=== PATIENT | female | born 1985 | race African-American/Black ===

== ENCOUNTER 2017-06-08 18:43 | Emergency (ER) | payer OTHER ==
--- NOTE | ~2017-06-08 | CT98 ---
[facility] A Service [facility] RADIOLOGY TEXT RESULTS PATIENT: GINI VILLATORO LOCATION: SED : 89 UNIT #: [id number] AGE: [address]: HASMUKH RED SEX: F ORDER DR: [id number] [address] [address] [id number] E MR#: [id number] Acc #: [id number] NAME: GINI VILLATORO : 1985 SEX: F STUDY DATE/TIME: 06/08/2017 20:29 UNIT: SED ROOM: STUDY DESCRIPTION: CT Lumbar Spine Wo Cont Attending Physician: Hasmukh Red Ordering Physician: Hasmukh Red Primary Care Physician: Primary Care Physician No MEDICAL IMAGING REPORT This report is preliminary unless electronic signature is present. EXAM Lumbar spine CT without contrast. HISTORY Bilateral lower leg pain, tingling and swelling. Onset this morning early a.m. No know injury. COMMENT Lumbar spine CT performed in the axial plane followed by sagittal an coronal reconstructed images. No previous. The CT exam was performed with one or more of the following radiation dose reduction techniques: automatic exposure control, adjustment of mA and/or kV according to patient size, and iterative reconstruction. Spine is numbered assuming there is a hypoplastic S1-2 intervertebral disc. Sagittal alignment is normal. There is no acute fracture or bone destruction. At T11-12: No bony canal or bony foraminal impingement. At T12-L1, no canal or bony foraminal impingement. At L1-2, no canal or foraminal impingement. At L2-3, no canal or foraminal impingement. At L3-4, no canal or foraminal impingement. At L4-5, probably a mild concentric disc bulge and some effacement of the thecal sac. Probably not significant foraminal impingement. There may be mild canal stenosis at this level. Mild right sided facet degenerative [facility] A Service [facility] RADIOLOGY TEXT RESULTS PATIENT: GINI VILLATORO LOCATION: SED : 89 UNIT #: [id number] AGE: [address]: HASMUKH RED SEX: F ORDER DR: [email or web address]. At L5-S1, I believe there is a broad posterior protrusion and some mass effect on the bilateral lower recesses and some effacement of the anterior thecal sac. There may be some mild inferior foraminal narrowing on the left. IMPRESSION; 1. Relatively mild lumbar changes. There may be some mild canal stenosis at the L4-5 level and some mild mass effect on the bilateral lateral recess at L5-S1. Lumbar spine findings are best pursued with a MRI of the lumbar spine if the patient is a candidate. Dictated by... Toshia Arthur M.D. THIS IS AN ELECTRONICALLY VERIFIED REPORT Toshia Arthur M.D. at 06/09/2017 11:22 AM SERG/char TD: 06/09/2017 10:40 JOB #: [id number] MEDICAL IMAGING REPORT Page 1 of 1
--- NOTE | ~2017-06-08 | US84 ---
[id number] [address] [address] [id number] E MR#: [id number] Acc #: [id number] NAME: GINI VILLATORO : 1985 SEX: F STUDY DATE/TIME: 06/08/2017 19:58 UNIT: SED ROOM: STUDY DESCRIPTION: US LE Veins Complete Philipp Stdy Attending Physician: Hasmukh Arrieta Ordering Physician: Hasmukh Arrieta Primary Care Physician: Primary Care Physician No MEDICAL IMAGING REPORT This report is preliminary unless electronic signature is present. EXAM Bilateral lower extremity venous duplex 06/08/2017 HISTORY Bilateral lower extremity pain and edema for 2 days. Evaluate for deep vein thrombosis. TECHNIQUE Venous ultrasound examination of both lower extremities was performed using grayscale, spectral Doppler and color flow Doppler imaging. FINDINGS The examination is negative. There is no evidence of deep venous thrombus from the groin to the lower calf bilaterally. Visualized greater saphenous veins are also patent. IMPRESSION Negative examination. No evidence of lower extremity DVT. Dictated by... Soto Olmos M.D. THIS IS AN ELECTRONICALLY VERIFIED REPORT Soto Olmos M.D. at 06/09/2017 2:16 PM DANIELLA/freida TD: 06/09/2017 10:35 JOB #: [id number] MEDICAL IMAGING REPORT Page 1 of 1
[~2017-06-08 18:43] MED LIST: ANUSOL OINTMENT30 G1 TOP; BIRTH CONTROL PILL PO; FLAGYL PO; NO MEDICATIONS; PHENERGAN25 M1 PO; VICODIN 5/500 T1 TAB PO; ZOVIRAX PO
== END 2017-06-08 22:00 | disposition home or self-care (01) ==
LOC: SED 18:43
DX: M54.41 Lumbago with sciatica, right side (principal); M54.42 Lumbago with sciatica, left side; I10 Essential (primary) hypertension; Z86.718 Personal history of other venous thrombosis and embolism
CPT/HCPCS: 72131; 84703; 93970; 99284; J1885